=== PATIENT | female | born 1960 | race Caucasian/White ===

== ENCOUNTER 2021-01-29 00:50 | Emergency (ER) | payer OTHER ==
[~2021-01-29] VITALS: Ht 172.7 cm; Wt 59.0 kg
--- NOTE | ~2021-01-29 | EMS ---
[address] [address] EMS Patient Care Report Name: NICOLE KNAPP Room #: REG BOBBI Garcia#: [id number] Admission: 01/29/21 Attend Phys: Discharge: Date of : 58 Report #: [id number] THIS REPORT FOR: //name// Report Transmitted: 01/29/2021 02:22 EMS Care Summary [facility] MED-ACT Incident [id number] @ 01/28/2021 23:59 Incident Location [address] [place] [address] Patient NICOLE KNAPP Female, 60 Years 1960 Patient Address [address] [place] [address] Patient History Attention Deficit Hyperactivity Disorder (ADHD),Depression, Patient Allergies Keflex, Patient Medications Lamictal, Adderall, Tramadol, Seroquel, Tovey, Chief Complaint I want to sleep Disposition Transported No Lights/[place] Reason Overdose/Poisoning/Ingestion Transported To [facility] Narrative PT friend contacted 911 when pt told her she had taken 30 -200 mg seroquel at 2230 last night after having a heated conversation with her brother. [address] [address] EMS Patient Care Report Name: NICOLE KNAPP Room #: REG BOBBI Garcia#: [id number] Admission: 01/29/21 Attend Phys: Discharge: Date of : 58 Report #: [id number] PT was unaware that 911 was called in her behalf. [facility] on scene at our arrival. PT states she only wants to go to sleep and was not trying to kill herself. PT is adamant about taking "only 15-25mg seroquel" but no bottles found with that dosing. 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 Much time was spent talking with Pt in attempts to get her to come willingly to be seen. I told her I would call and talk to the ED dr to discuss her wants and if he wants her to be seen then she will need to be seen. Dr. Gar was contacted at [facility] ED. He agreed she needed to be seen and would like PD to assist if they are willing. We discussed the options with the PD and the PT. Ultimately she walked to the the unit on her own and secured for transport to [facility]. [facility] contacted and advised of our transport. PT sits during transport and attempts to plead her case. PT walks into The ED with PM Oskar. care transferred to staff rm 7 Initial Vitals @00:23P: 86,SpO2: 98, @00:35P: 83,R: 16,BP: 140/93,GCS: 15,SpO2: 98,Revised Trauma: 12, @00:11P: 80,R: 16,BP: 145/87,Pain: 0/10,GCS: 15,Temp: 98.4F,SpO2: 98,Revised Trauma: 12, Assessments @00:13MENTAL:Person Oriented,Time Oriented,Place Oriented,Event Oriented,SKIN:HEENT:Head/Face: No Abnormalities,LUNG SOUNDS:General: No Abnormalities,ABDOMEN:General: No Abnormalities,PELVIS//GI:EXTREMITIES:Left Arm: No Abnormalities,Right Arm: No Abnormalities,PULSE:NEURO:Abnormal Gait, Impression Overdose - Unspecified Procedures @00:12Surgical Mask on PatientResponse: Unchanged Timeline 23:58,Psap Call 23:59,Dispatched 00:00,En Route 00:08,On Scene 00:10,At Patient 00:11,BP: 145/87 M,PULSE: 80,RR: 16 R,SPO2: 98 Ox,ETCO2: ,BG: ,PAIN: 0,GCS: 15, 00:12,Surgical Mask on Patient,Response: Unchanged 00:23,BP: / M,PULSE: 86,RR: R,SPO2: 98 Ox,ETCO2: ,BG: ,PAIN: ,GCS: , 00:35,BP: 140/93 M,PULSE: 83,RR: 16 R,SPO2: 98 Ox,ETCO2: ,BG: ,PAIN: ,GCS: 15, 00:37,Depart Scene [facility] [address] [place] [address] EMS Patient Care Report Name: HEATHER KNAPPN Room #: REG Radha#: [id number] Admission: 01/29/21 Attend Phys: Discharge: Date of : 58 Report #: [id number] 00:47,At Destination 01:15,Call Closed 23:58,Call Received Disclaimer [email or web address] Copyright 202 [employer] This EMS Care Summary contains data elements from the applicable legal record (which may be displayed differently). It is designed to provide pertinent information for the following purposes: continuity of care, clinical quality, and state data reporting. The complete legal record is available to ED staff and administrators of the receiving hospital in [employer]'s Patient Tracker. All data is provided "as is."
[~2021-01-29 00:50] MED LIST: ADDERALL 20 MG20 M1 PO; ALORA1 EAC1 TD; AMBIEN 5 MG TABL5 M1 PO; CENTRUM SILVER1 EAC2 PO; FIRST-TESTOSTER60 G1 TD; XANAX 0.5 MG0.5 MG PO
[2021-01-29] MEDS ORDERED: SEROQUEL 100 M100 MG PO (01:10)
[2021-01-29] MEDS ORDERED: LAMOTRIGINE250 MG PO (01:11)
[2021-01-29] MEDS ORDERED: CLONAZEPAM 0.50.5 M1 PO (01:12)
[2021-01-29] MEDS ORDERED: ADDERALL 30 MG30 MG PO (01:13)
[2021-01-29 01:56] LABS: ABSOLUTE NEUTROPHILS 2.6 thou/uL (1.4-8.2); BASOPHILS 1.1 % (0.0-2.0); EOSINOPHILS 5.2 % (0.0-3.0); HEMATOCRIT 36.3 % (37.0-47.0); HEMOGLOBIN 11.6 gm/dL (12.0-15.0); LYMPHOCYTES 35.2 % (24.0-44.0); MCH 27.1 pg (26.0-34.0); MCV 84.6 fL (80.0-100.0); MONOCYTES 7.9 % (1.0-8.0); PLATELET COUNT 384 thou/uL (150-400); POLYS 50.6 % (36.0-66.0); RBC 4.29 mil/uL (4.20-5.00); RDW 16.6 % (10.5-14.5); WBC 5.1 thou/uL (4.0-11.0)
[2021-01-29 02:17] LABS: URINE BILIRUBIN NEGATIVE (Negative); URINE BLOOD NEGATIVE (Negative); URINE CLARITY CLEAR; URINE COLOR YELLOW; URINE GLUCOSE-RANDOM* NEGATIVE (Negative); URINE KETONES NEGATIVE (Negative); URINE NITRITE-REFLEX NEGATIVE (Negative); URINE PROTEIN (DIPSTICK) NEGATIVE (Negative); URINE SPECIFIC GRAVITY 1.025 (1.005-1.035); URINE UROBILINOGEN 0.2 E.U./dl (0.2-1.0)
[2021-01-29 02:18] LABS: URINE LEUKOCYTES-REFLEX 1+ (Negative)
[2021-01-29 02:19] LABS: ANION GAP 6 mmol/L (7-16); BUN 19 mg/dL (7-18); CALCIUM 9.3 mg/dL (8.5-10.1); CHLORIDE 106 mmol/L (98-107); CO2 27 mmol/L (21-32); GLUCOSE 91 mg/dL (74-106); POTASSIUM 3.4 mmol/L (3.5-5.1); SODIUM 139 mmol/L (136-145)
[2021-01-29 02:25] LABS: ALBUMIN 4.1 g/dL (3.4-5.0); SALICYLATE < 2.8 mg/dL (2.8-20.0); SGOT 27 U/L (15-37); SGPT 30 U/L (14-59); TOTAL BILIRUBIN 0.2 mg/dL (0.2-1.0); TOTAL PROTEIN 7.3 g/dL (6.4-8.2)
[2021-01-29 02:26] LABS: AMP/METHAMP POSITIVE (Negative); BARBITURATES Negative (Negative); BENZODIAZEPINES POSITIVE (Negative); COCAINE Negative (Negative); METHADONE Negative (Negative); OPIATES Negative (Negative); PCP Negative (Negative)
[2021-01-29 02:29] LABS: CRYSTALS None Seen /LPF (None Seen); FINE GRANULAR CASTS 0-3 Few /LPF (None Seen); HYALINE CASTS 0-3 Few /LPF (None Seen); MUCUS 0-3 Light strn/LPF (None Seen); SQUAMOUS 4-10 Moderate /LPF (0-3); URINE RBC 0-2 Rare /HPF (0-2); URINE WBC-REFLEX 6-15 Few /HPF (0-5)
[2021-01-29] MEDS ORDERED: MACROBID 100 M100 M1 PO (05:02)
[2021-01-29 05:15] VITALS: BP 145/106
--- NOTE | 2021-01-29 07:07 | EKG ---
[address] [place] [address] ELECTROCARDIOGRAM REPORT Name: NICOLE KNAPP [id number] Admission: 01/29/21 Attend Phys: Discharge: 01/29/21 Date of : 58 Report #: [id number] [facility] ED Test Date: 2021-01-29 Test Time: 01:04:35 Pat Name: NICOLE KNAPP Department: Room: Gender: F Intake Clerk: MPacarol : 1960 Requested By: Alexandre Garcia Order Number: [id number] MD: Felipe Torres Measurements Intervals [place] Rate: 73 P: 55 CT: 172 QRS: 50 QRSD: 92 T: 61 QT: 415 QTc: 458 Interpretive Statements Sinus rhythm Compared to ECG 11/22/2014 17:10:00 No significant changes Electronically Signed On 01-29-2021 7:07:20 CDT by Felipe Torres [email or web address] <ELECTRONICALLY SIGNED> By: Felipe Torres MD, [facility] 01/29/21 [phone] Felipe Torres MD, FACC /EPI
== END 2021-01-29 05:16 | disposition home or self-care (01) ==
LOC: ER 00:50
PROVIDERS: Emergency Medicine
DX: F31.9 Bipolar disorder, unspecified (principal); G47.00 Insomnia, unspecified; N39.0 Urinary tract infection, site not specified; Z79.899 Other long term (current) drug therapy; Z88.0 Allergy status to penicillin; Z88.8 Allergy status to other drugs, medicaments and biological substances; Z20.828 Contact with and (suspected) exposure to other viral communicable diseases